=== PATIENT | female | born 1945 | race Caucasian/White ===

== ENCOUNTER 2018-08-02 10:33 | Emergency (ER) | payer BC, MEDICARE ==
[2018-08-02 12:46] LABS: Bilirubin Small (Negative); Blood, Urine Small (Negative); Clarity TURBID (Clear); Glucose, Urine (Dipstick) Negative (Negative); Leukocyte Moderate (Negative); Nitrite Negative (Negative); Protein, Urine (Dipstick) 100 mg/dL (Neg-Trace); Specific Gravity, Urine 1.017 (1.002-1.036); Urobilinogen 0.2 mg/dL (0.2-1.0)
[2018-08-02 12:48] LABS: Pathc Cast-AUWi Flag 2.18 (0-2.49); Squamous Epithelial 0-3 HPF (0-3)
[2018-08-02 12:59] LABS: Yeast-AUWi Flag 2290.6 (0-25.0)
[2018-08-02 13:12] LABS: Bacteria/HPF 4+ HPF (None Seen); Hyaline Casts/LPF 0-3 HYALINE CAST LPF (0-3 Hyaline); Transitional Epithelial 0-3 HPF (0-3); Yeast-All Forms 1+ HPF (None Seen)
[2018-08-02] MEDS ORDERED: Fentanyl 100 MCG/2 ML VIAL ONE (15:01)
[2018-08-02] MEDS ORDERED: Morphine 4 MG/ML VIAL ONE (16:04)
[2018-08-02] MEDS ORDERED: Dextrose 5% in Water 1,000 ML IV PRN (16:48)
[2018-08-02] MEDS ORDERED: Dextrose 50% Abboject 50 ML SYRINGE SLOW IVP PRN (16:48)
[2018-08-02] MEDS ORDERED: Ondansetron PF 4 MG/2 ML Vial IVP PRN (16:48)
[2018-08-02] MEDS ORDERED: Ondansetron ODT 4 MG TAB PO PRN (16:48)
[2018-08-02] MEDS ORDERED: Morphine 2 MG/ML SYRINGE IVP PRN (16:48)
[2018-08-02] MEDS ORDERED: Sodium Bicarbonate 150 MEQ in Dextrose 5% in Water 1,000 ML IV SCH (17:00)
[2018-08-02] MEDS ORDERED: Acetaminophen 1,000 MG in Premix Bag 1 BAG IVPB SCH (18:00)
--- NOTE | 2018-08-02 18:08 | ULT ---
BILATERAL RENAL ULTRASOUND COMPLETE: 08/02/18 HISTORY: 73-year-old female with history of acute renal failure. Right kidney measures 10.1 x 5.3 x 5.4 cm. Left kidney measures 0.5 x 4.8 x 5.1 cm. No renal hydronephrosis. No perinephric process. The bladder is empty with a Torres catheter in place. IMPRESSION: Unremarkable bilateral renal ultrasound. No evidence for hydronephrosis. POS: JENNIFER
--- NOTE | 2018-08-02 21:21 | CON ---
DATE OF CONSULTATION: 08/02/2018 CONSULTING PHYSICIAN: Ly Gorman M.D. REQUESTING PHYSICIAN: ER physician. REASON FOR CONSULTATION: Acute kidney injury. IMPRESSION: 1. Acute kidney injury. This is likely prolonged prerenal state that may have progressed to acute t ubular necrosis, stage, this is more or less in the context of poor p.o. intake with increased gastro intestinal loss compounded by possible continued use of angiotensin converting enzyme inhibitor, jose nopril. 2. Metabolic acidosis likely in the context of gastrointestinal loss of bicarbonate as well as reduc ed GFR due to acute kidney injury. 3. Hyperkalemia in the context of reduced GFR and metabolic acidosis with its result and cellular sh ift of potassium. 4. Profound azotemia related to problem #1. PLAN: 1. Rehydrate this patient with bicarb-based infusion and reevaluate the renal function within the ne xt 24 hours. Hopefully, patient will begin to show significant evidence of renal recovery. Otherwis e, if this is already an established acute tubular necrosis, it might take a little bit longer to exp erience significant renal recovery. In that event, I have already discussed with his son that we may need renal replacement therapy, but at time of dictation, there is no emergent indication for renal replacement therapy (hemodialysis) this modality of treatment will be pending based on the clinical c ourse. 2. Renal ultrasound to evaluate the echogenicity and size and symmetry of the kidneys. 3. Parathyroid hormone, phosphorus and order renal parameters to evaluate for acute versus chronicit y, though I suspect this is more of an acute insult. 4. Renally dose all medications and avoid potentially nephrotoxic agents. 5. In the event that the patient's renal function does not show significant recovery, we will prefer coordinating hip replacement with the placement of dialysis access. HISTORY OF PRESENT ILLNESS: A 73-year-old female patient who initially presented here for what has b een deemed as urinary tract infection and was sent out and on getting out, patient did sustain a fall , fracturing the femur. Further clinical evaluation revealed significant evidence of acute kidney in jury with creatinine of up to and profound azotemia. Of note for the past several days, patien t has not been eating well and drinking well, associated with diarrhea. Patient denies any rash. No fever. No hematuria. As a result of the findings of the significant renal failure, decision was ta john to involve Renal in the management of this case. PAST MEDICAL HISTORY: Significant for hypertension, chronic pain syndrome on morphine. MEDICATIONS: Reviewed and as documented on [employer]. ALLERGIES: CODEINE and TOMATO. FAMILY HISTORY: No family history of kidney disease. SOCIAL HISTORY: No alcohol, no tobacco, no illicit drug use. REVIEW OF SYSTEMS: As documented in the body of the history. All the other systems were reviewed an d found not to be significantly related to presenting illness. Patient is experiencing pain involvin g the hip fracture. PHYSICAL EXAMINATION: GENERAL: The patient was found to be in some physical distress, hemodynamically stable. VITAL SIGNS: Blood pressure 151/92, respiratory rate of 18, O2 sat 96%. HEENT: Remarkable for dry oral mucosa. Neck was supple. No conjunctival injection or icterus. CARDIOVASCULAR SYSTEM: First and second heart sounds were heard. RESPIRATORY SYSTEM: Clear to auscultation. DIGESTIVE SYSTEM: Revealed a benign abdomen with positive bowel sounds. EXTREMITIES: No peripheral edema. NEUROLOGIC: Alert, oriented. No lateralizing sign. LYMPHATICS: No peripheral lymphadenopathy. Bilateral pedal pulses noted. SUMMARY: A 73-year-old female patient who sustained a fall fracturing the left femur and now having evidence of acute kidney injury. Thank you for this consultation. We will follow with you.
== END 2018-08-02 14:05 | disposition home or self-care (01) ==
LOC: ERS 10:33
DX: N39.0 Urinary tract infection, site not specified (principal); I10 Essential (primary) hypertension; Z79.899 Other long term (current) drug therapy
CPT/HCPCS: 76770; 81003; 81015; 82570; 87086; J2270; J3010; J7070

== ENCOUNTER 2018-08-02 14:31 | Inpatient (IN) | payer BC, MEDICARE ==
[2018-08-02 15:08] LABS: #Lymphocytes 0.8 thou/uL (1.20-3.40); #Monocytes 0.3 thou/uL (0.11-0.59); #Neutrophils 6.9 thou/uL (1.40-6.50); %Basophils 0.2 % (0.0-1.0); %Eosinophils 0.4 % (0.0-10.0); %Lymphocytes 9.4 % (21.0-51.0); %Monocytes 3.7 % (0.0-10.0); %Neutrophils 86.3 % (42.0-75.0); Hemoglobin 9.6 g/dL (12.0-16.0); Mean Corpuscular Hemoglobin 31.3 pg (27.0-31.0); Mean Corpuscular Volume 94.9 fL (78.0-98.0); Mean Platelet Volume 6.2 fL (7.4-10.4); Platelet Count 418 thou/uL (130-400); RBC Distribution Width 13.4 % (11.5-14.5); Red Blood Cell (RBC) Count 3.06 mill/uL (4.20-5.40)
[2018-08-02 15:29] LABS: ALT (SGPT) 12 U/L (8-55); AST (SGOT) 21 U/L (5-34); Alkaline Phosphatase 109 U/L (40-150); Anion Gap 31 mmol/L (10-20); BUN (Urea Nitrogen) 124 mg/dL (9.8-20.1); Bilirubin, Total 0.5 mg/dL (0.2-1.2); Calc. Creatinine Clearance 0 mL/min (70-130); Calcium 8.9 mg/dL (7.8-10.44); Carbon Dioxide 14 mmol/L (23-31); Chloride 102 mmol/L (98-107); Estimated GFR-MDRD 2; Globulin 3.7 g/dL (2.4-3.5); Glucose 96 mg/dL (83-110); Potassium 5.9 mmol/L (3.5-5.1); Protein, Total 7.7 g/dL (6.0-8.3); Sodium 141 mmol/L (136-145)
[2018-08-02 15:34] LABS: Troponin I 0.062 ng/mL (< 0.028)
[2018-08-02 15:38] LABS: CKMB 11.6 ng/mL (0-6.6)
--- NOTE | 2018-08-02 15:42 | RAD ---
LEFT HIP TWO VIEW 08/02/18 HISTORY: Pain after a fall. COMPARISON: None. FINDINGS: An intertrochanteric fracture of the left femur with medial displacement of the lesser trochanter anna roximately 7 mm. Mild comminution. IMPRESSION: Intertrochanteric fracture left femur. POS: JOLENE
--- NOTE | 2018-08-02 15:44 | RAD ---
PELVIS ONE VIEW: 08/02/18 HISTORY: Fall. COMPARISON: None. FINDINGS: Intertrochanteric fracture left femur with medial displacement of the lesser trochanter. IMPRESSION: Intertrochanteric fracture left femur. POS: JOLENE
--- NOTE | 2018-08-02 15:44 | RAD ---
CHEST 1 VIEW: Date: 08/02/18 HISTORY: Fall. COMPARISON: None. FINDINGS: There is scarring in the lung bases. No pneumothorax. No focal air space consolidation. Old left and right-sided rib fractures. IMPRESSION: Chronic changes and cardiomegaly. POS: JENNIFER
--- NOTE | 2018-08-02 15:45 | RAD ---
LEFT FEMUR TWO VIEWS: 08/02/18 HISTORY: Fall. COMPARISON: None. FINDINGS: Intertrochanteric fracture left femur. IMPRESSION: Intertrochanteric fracture left femur. POS: JOLENE
--- NOTE | 2018-08-02 16:57 | CT ---
ABDOMEN AND PELVIC CT SCAN WITHOUT IV CONTRAST: 08/02/18 HISTORY: 73-year-old female with left abdominal pain and renal failure. There is a comminuted intertrochanter ic fracture of the left hip with some foreshortening. This was demonstrated on a prior femur exam, . Mild linear parenchymal changes in the lung bases, nonspecific, possibly chronic changes of subsegmen stephan atelectasis. Multiple cysts are noted within the liver. The gallbladder shows some borderline gal lbladder wall thickening and some heterogeneous attenuation within the gallbladder. No evidence for p ericholecystic abnormal fat stranding or fluid. Pancreas and spleen are unremarkable. Small hiatal h ernia. Some minimal nodularity in the left adrenal gland, evidence for left adrenal adenoma. Several small nonobstructing left renal calculi. No evidence for acute obstruction. No abnormal fluid betina ection within the abdomen or pelvis. IMPRESSION: Two nonobstructing left renal calculi. A small hiatal hernia. Small left adrenal adenoma. Somewhat th ick walled appearing gallbladder with heterogeneous attenuation but no overt pericholecystic fat stra nding or fluid. If the patient has right upper quadrant pain and there is concern for cholecystitis, a followup ultrasound study might be considered. No acute obstruction. Comminuted intertrochanteri c fracture left femur. POS: [facility]
[2018-08-02] MEDS ORDERED: Ondansetron ODT 4 MG TAB PO PRN (19:00)
[2018-08-02] MEDS ORDERED: Dextrose 5% in Water 1,000 ML IV PRN (19:00)
[2018-08-02] MEDS ORDERED: Dextrose 50% Abboject 50 ML SYRINGE SLOW IVP PRN (19:00)
[2018-08-02] MEDS: Ondansetron PF 4 MG/2 ML Vial IVP PRN (19:08)
[2018-08-02] MEDS: Morphine 2 MG/ML SYRINGE IVP PRN ×2 (19:08→21:28)
--- NOTE | 2018-08-02 19:22 | HP ---
DATE OF ADMISSION: 08/02/2018 ATTENDING PHYSICIAN: Dr. Robb. TRAUMA ACTIVATION: Not applicable. HISTORY OF PRESENT ILLNESS: Roxanne Evans is a 73-year-old female who presented to [facility] earlier today with a chief complaint of nausea and vomiting. Per patient, she has experie nced 1-2 weeks of malaise and nausea which has resulted in poor p.o. intake. She started vomiting ea rlier today and therefore presented to the emergency room. She was seen and evaluated and diagnosed with a urinary tract infection. At that time, the patient was discharged from the emergency room. A s she was getting into her car to leave she fell, striking her left hip. The patient was reevaluated in the emergency room and found to have a left hip fracture. Additionally, the patient had markedly abnormal labs to include acute renal failure, hyperkalemia, and abnormal cardiac enzymes. Upon my e valuation, the patient has a chief complaint of left hip pain. ALLERGIES: None. HOME MEDICATIONS: Include atorvastatin 40 mg, morphine 15 mg t.i.d., hydrochlorothiazide 25 mg daily , clonazepam 0.5 mg b.i.d., tizanidine 4 mg q.8 hours p.r.n., and lisinopril 10 mg. MEDICAL HISTORY: Significant for hypertension, chronic back pain, knee pain and kidney stones. PAST SURGICAL HISTORY: Back surgery and multiple knee injections. SOCIAL HISTORY: The patient currently works [employer]. Denies alcohol, tobacco or illicit drug use. FAMILY HISTORY: Significant for father of coronary artery disease and a sister was from breast cancer. REVIEW OF SYSTEMS: A 10-point review of systems was performed and obtained was significantly positiv e for chills, bilateral flank pain and urinary urgency. Denied frequency, dysuria, hematuria as well as any changes to bowel habits, chest pain, shortness of breath, dizziness or weakness upon standing . The remainder of the 10-point review of systems was negative. PHYSICAL EXAMINATION: VITAL SIGNS: Temperature 98.3, pulse 101, respirations 17, O2 sat 98% on room air, blood pressure 15 4/52. GENERAL: Elderly female in no acute distress, resting in bed. HEAD: Normocephalic, atraumatic. EYES: Pupils are PERRL. Extraocular movements are intact. NECK: Supple. Trachea is midline. CHEST: Atraumatic, nontender to palpation. Normal work of breathing. Symmetric rise. CARDIOVASCULAR: Regular rate and rhythm, no obvious murmurs, rubs or gallops. GASTROINTESTINAL: Soft, nontender, nondistended. She does exhibit some mild tenderness to the flank s. MUSCULOSKELETAL: Left lower extremity is shortened and externally rotated. She is neurovascularly i ntact distal to the side of her injury. Range of motion limited secondary to pain. Other extremitie s within normal limits. NEUROLOGIC: GCS is 15 and no focal deficit is noted. LABORATORY DATA: WBC 8.0, hemoglobin 9.6, hematocrit 29, platelet count 418. Sodium 141, potassium 5.9, chloride 102, carbon dioxide 14, BUN 124, creatinine 16.68, glucose 96, AST and ALT within jignesh l limits. Troponin 0.062. CK-MB 11.6. EKG with nonspecific T-wave changes. No evidence of T-waves noted. RADIOGRAPHIC FINDINGS: X-ray of the left hip demonstrated a left intertrochanteric hip fracture. X- ray of the pelvis demonstrated the same. X-ray of the chest showed cardiomegaly with bibasilar scarr ing and atelectasis, evidence of old bilateral rib fractures. X-ray of the left femur demonstrated a left intertrochanteric femur fracture. CT of the abdomen and pelvis demonstrated nonobstructing lef t renal calculi, a small hiatal hernia. Left adrenal adenoma of thickened gallbladder and multiple l iver cysts within the liver. A renal ultrasound and echocardiogram are pending. ASSESSMENT: 1. Status post mechanical fall. 2. Left intertrochanteric hip fracture. 3. Acute traumatic pain. 4. Acute renal failure, possibly secondary to acute tubular necrosis. 5. Urinary tract infection. 6. Hyperkalemia, secondary to above. 7. Anion gap metabolic acidosis secondary to above. 8. History of hypertension. 9. History of chronic pain on chronic narcotics. 10. Cardiomegaly. 11. Nonobstructing kidney stones. PLAN: Admit to [facility]. Nephrology has been consulted by the emergency room physician, follow up recom mendations. IV fluid bolus now. Closely monitor urine output. Kayexalate for hyperkalemia. Initia te bicarbonate drip. Pain management with IV analgesics. Follow up pending ultrasound studies. Rep eat labs. The patient may need central line for closer hemodynamic monitoring. Empiric antibiotics and urine culture. Plan for admission was discussed with the patient and family at bedside and all q uestions were answered at the time of this dictation. Patient has been seen and evaluated by Dr. Miguelina barajas who agrees with my assessment and plan.
[2018-08-02 19:49] LABS: CKMB 10.1 ng/mL (0-6.6)
[2018-08-02 19:56] LABS: Iron 50 ug/dL (50-170); Iron Binding Capacity, Total 198 mcg/dL (265-497)
[2018-08-02] MEDS: Acetaminophen 1,000 MG in Premix Bag 1 BAG IVPB SCH (20:06)
[2018-08-02 20:45] LABS: Potassium 5.6 mmol/L (3.5-5.1)
[2018-08-02] MEDS ORDERED: Acetaminophen 1,000 MG in Premix Bag 1 BAG IVPB SCH (23:59)
[2018-08-03] MEDS: Sodium Bicarbonate 150 MEQ in Dextrose 5% in Water 1,000 ML IV SCH ×2 (00:20→05:39)
[2018-08-03] MEDS: Acetaminophen 1,000 MG in Premix Bag 1 BAG IVPB SCH ×4 (01:47→23:11)
[2018-08-03 04:29] LABS: Anion Gap 23 mmol/L (10-20); BUN (Urea Nitrogen) 119 mg/dL (9.8-20.1); Calc. Creatinine Clearance 4 mL/min (70-130); Calcium 7.4 mg/dL (7.8-10.44); Carbon Dioxide 24 mmol/L (23-31); Chloride 96 mmol/L (98-107); Estimated GFR-MDRD 2; Glucose 210 mg/dL (83-110); Potassium 4.5 mmol/L (3.5-5.1); Sodium 138 mmol/L (136-145)
[2018-08-03] MEDS: Ondansetron PF 4 MG/2 ML Vial IVP PRN (06:12)
[2018-08-03] MEDS: Morphine 2 MG/ML SYRINGE IVP PRN ×3 (06:22→18:35)
[2018-08-03] MEDS ORDERED: Prevnar 13-Val Conj/PF 0.5 ML SYRINGE IM ONE (09:00)
[2018-08-03] MEDS ORDERED: Neomycin-Polymyxin 1 ML AMP ONE (09:23)
[2018-08-03] MEDS ORDERED: Fentanyl 100 MCG/2 ML VIAL ONE ×5 (09:30→16:32)
[2018-08-03 09:32] LABS: #Lymphocytes 0.7 thou/uL (1.20-3.40); #Monocytes 0.5 thou/uL (0.11-0.59); #Neutrophils 5.4 thou/uL (1.40-6.50); %Basophils 0.1 % (0.0-1.0); %Eosinophils 0.4 % (0.0-10.0); %Lymphocytes 10.3 % (21.0-51.0); %Monocytes 7.1 % (0.0-10.0); %Neutrophils 82.1 % (42.0-75.0); Hemoglobin 7.4 g/dL (12.0-16.0); Mean Corpuscular HGB CONC 32.8 g/dL (32.0-36.0); Mean Corpuscular Hemoglobin 30.4 pg (27.0-31.0); Mean Corpuscular Volume 92.7 fL (78.0-98.0); Mean Platelet Volume 6.4 fL (7.4-10.4); Platelet Count 322 thou/uL (130-400); Red Blood Cell (RBC) Count 2.42 mill/uL (4.20-5.40); White Blood Cell (WBC) Count 6.5 thou/uL (4.8-10.8)
[2018-08-03] MEDS ORDERED: Glycopyrrolate 0.2 MG/ML 5 ML SYRINGE ONE (10:03)
[2018-08-03] MEDS ORDERED: Dexamethasone 20 MG/5 ML VIAL ONE (10:03)
[2018-08-03] MEDS ORDERED: Lidocaine 1% PF 5 ML VIAL ONE (10:03)
[2018-08-03] MEDS ORDERED: PROPOFOL 200 MG/20 ML VIAL ONE (10:03)
[2018-08-03] MEDS ORDERED: ePHEDrine/0.9% NaCl/PF SYRINGE 50 mg/10 ml ONE (10:03)
[2018-08-03] MEDS ORDERED: Ondansetron PF 4 MG/2 ML Vial ONE (10:03)
[2018-08-03] MEDS ORDERED: Fentanyl 100 MCG/2 ML VIAL SLOW IVP SCH (10:15)
[2018-08-03] MEDS ORDERED: Sodium Bicarbonate 150 MEQ in Dextrose 5% in Water 1,000 ML IV SCH (10:15)
--- NOTE | 2018-08-03 10:53 | RAD ---
CHEST 1 VIEW: Date: 08/03/18 HISTORY: Central line placement. COMPARISON: Radiograph dated 08/02/18. FINDINGS: Central venous catheter is in place with tip in mid SVC. Mild chronic interstitial scarring throughou t the lungs. Heart size is enlarged. No pneumothorax or effusion. IMPRESSION: Uncomplicated placement of central venous catheter. POS: JENNIFER
[2018-08-03] MEDS ORDERED: HYDROmorphone 2 MG/ML VIAL ONE ×2 (14:37→15:16)
[2018-08-03] MEDS ORDERED: SUGAMMADEX SODIUM 500 MG/5 ML VIAL ONE (14:48)
[2018-08-03] MEDS ORDERED: Cepastat Lozenges 1 LOZ PO PRN (14:54)
[2018-08-03] MEDS ORDERED: Ondansetron ODT 4 MG TAB PO PRN (14:54)
[2018-08-03] MEDS ORDERED: Fleet Enema 133 ML BOT PR PRN (14:54)
[2018-08-03] MEDS ORDERED: Bisacodyl 10 MG SUPP PR PRN (14:54)
[2018-08-03] MEDS ORDERED: Milk Of Magnesia 30 ML UDCUP PO PRN (14:54)
[2018-08-03] MEDS ORDERED: HYDROmorphone 2 MG/ML VIAL SLOW IVP PRN (15:03)
[2018-08-03] MEDS ORDERED: Ondansetron HCl/PF 4 MG/2 ML Vial IVP PRN (15:03)
[2018-08-03] MEDS ORDERED: PACU-Morphine 4MG/ML VIAL SLOW IVP PRN (15:03)
[2018-08-03] MEDS ORDERED: Promethazine HCl 25 MG/ML VIAL IM PRN (15:03)
[2018-08-03] MEDS ORDERED: Promethazine HCl 25 MG/ML VIAL SLOW IVP PRN (15:03)
[2018-08-03] MEDS ORDERED: Morphine 4 MG/ML VIAL ONE (15:09)
--- NOTE | 2018-08-03 15:17 | RAD ---
LEFT FEMUR 2 VIEWS: Date: 08/03/18 HISTORY: Open reduction and internal fixation. COMPARISON: Radiograph prior day. FINDINGS: Satisfactory open reduction and internal fixation intramedullary nail left femur. IMPRESSION: Satisfactory postoperative appearance. Fluoro time: 36.5 seconds. POS: JOLENE
[2018-08-03 15:39] LABS: #Lymphocytes 0.7 thou/uL (1.20-3.40); #Monocytes 0.3 thou/uL (0.11-0.59); #Neutrophils 9.9 thou/uL (1.40-6.50); %Basophils 0.1 % (0.0-1.0); %Eosinophils 0.4 % (0.0-10.0); %Lymphocytes 6.2 % (21.0-51.0); %Monocytes 3.1 % (0.0-10.0); %Neutrophils 90.1 % (42.0-75.0); Hemoglobin 8.4 g/dL (12.0-16.0); Mean Corpuscular HGB CONC 35.6 g/dL (32.0-36.0); Mean Corpuscular Hemoglobin 33.2 pg (27.0-31.0); Mean Corpuscular Volume 93.3 fL (78.0-98.0); Mean Platelet Volume 6.1 fL (7.4-10.4); Platelet Count 337 thou/uL (130-400); RBC Distribution Width 13.1 % (11.5-14.5); Red Blood Cell (RBC) Count 2.53 mill/uL (4.20-5.40)
--- NOTE | 2018-08-03 15:42 | OP ---
DATE OF OPERATION: 08/03/2018 PREOPERATIVE DIAGNOSIS: Intertrochanteric fracture of the left hip. POSTOPERATIVE DIAGNOSIS: Intertrochanteric fracture of the left hip. PROCEDURE: Open reduction and internal fixation of intertrochanteric fracture of the left hip utiliz ing a trochanteric fixation nail. SURGEON: Kali Pedraza M.D. ANESTHESIA: General. TECHNIQUE: The patient was given preoperative IV antibiotics, taken to the operating room and placed in supine position. Satisfactory general anesthesia was performed. Patient was then placed on the fracture table. All bony prominences were well padded. Traction was applied to the left foot and an kle and C-arm verified good alignment of the intertrochanteric fracture in AP, lateral, multiple obli que views. Lateral aspect of the left hip and thigh were then sterilely prepped and draped. Longitu dinal incision was made proximal to the greater trochanter approximately 3 inches in length and under fluoroscopic visualization, a guidepin was placed through the greater trochanter was over reamed and an 11 mm [employer]ynthe[employer] trochanteric fixation nail was inserted, it was 170 mm in length. It was inserted into the appropriate depth, so that through, a 1.5-inch incision on the lateral aspect of the thigh. A guide was used to drill up through the lateral aspect of the femur and into the femoral neck and h ead. The appropriate length screw was measured. The lateral cortex was over reamed and a 100 mm hel ical blade was inserted into the femoral neck and head and through the proximal aspect of the nail an d the locking device was used to lock the helical blade into place. A 5.0 locking screw was inserted into the femur and distal aspect of the vickie. Again, this was all verified with the C-arm with fluor oscopy. The two wounds were then copiously irrigated with antibiotic solution. They were closed usi ng #1 Vicryl for the iliotibial band, 0 Vicryl for the fat and subcutaneous tissue, and skin was clos ed with skin jesenia. Sterile dressing was applied. The patient was taken out of traction, was take n off the fracture table. She was awakened, extubated, and transferred to recovery room in stable co ndition. ESTIMATED BLOOD LOSS: 100 mL COMPLICATIONS: None.
[2018-08-03 15:59] LABS: Anion Gap 25 mmol/L (10-20); BUN (Urea Nitrogen) 110 mg/dL (9.8-20.1); Calc. Creatinine Clearance 4 mL/min (70-130); Calcium 6.9 mg/dL (7.8-10.44); Carbon Dioxide 28 mmol/L (23-31); Chloride 92 mmol/L (98-107); Estimated GFR-MDRD 3; Glucose 115 mg/dL (83-110); Magnesium 1.4 mg/dL (1.6-2.6); Potassium 3.5 mmol/L (3.5-5.1); Sodium 141 mmol/L (136-145)
[2018-08-03 16:03] LABS: Phosphorus 9.6 mg/dL (2.3-4.7)
--- NOTE | 2018-08-03 17:04 | CON ---
DATE OF CONSULTATION: 08/03/2018 HISTORY OF PRESENT ILLNESS: Ms. Evans is a 73-year-old white female who presented yesterday morning to the emergency room with nausea and vomiting. The patient was discharged from the emergency room a nd she went out to the parking lot to get into her vehicle. She fell and injured her left hip. She was brought back to the emergency room and x-rays revealed an intertrochanteric fracture of the left hip. The patient was admitted and laboratory showed elevated creatinine, BUN and potassium. She has been receiving hydration and her laboratory has improved. She is no longer hyperkalemic. Her creat inine has decreased and she has been cleared to undergo surgery for a broken left hip. PAST MEDICAL HISTORY: Medical illnesses: Hypertension, chronic back pain, knee pain, kidney stones. CURRENT MEDICATIONS: Morphine 15 mg 3 times a day, hydrochlorothiazide, clonazepam, lisinopril, tiza nidine, atorvastatin. ALLERGIES: None. PAST SURGICAL HISTORY: Previous back surgery. PHYSICAL EXAMINATION: EXTREMITIES: The patient is able to move her upper extremities without pain. Any attempts of moveme nt of the left hip causes severe pain. She even has left hip pain with movement of the right hip and lower extremity. The patient is able to flex and extend her toes and her left ankle and she has goo d peripheral pulses. IMAGING: X-rays show an intertrochanteric fracture of the left hip. IMPRESSION: 1. Intertrochanteric fracture of the left hip. 2. Acute renal failure. 3. Hyperkalemia, which has been normalized. 4. Hypertension. 5. Chronic back pain. PLAN: The patient has been cleared for surgery on the left hip. We will plan on performing open red uction internal fixation of the left hip. Plan on using a trochanteric fixation nail. Potential ris ks with the condition of surgery include, but are not limited to infection, bleeding, pain, damage to blood vessels or nerves, nonunion, malunion, the patient may require additional surgery, DVT and PE formation. The patient's questions were answered and she agreed to the procedure.
[2018-08-03] MEDS ORDERED: [UNRECOGNIZED DRUG - REMARK] IVPB PRN (17:11)
[2018-08-03] MEDS: Dextrose 5 % And 0.9 % NaCl 1,000 ML IV SCH (18:54)
--- NOTE | 2018-08-03 19:19 | PRG ---
DATE OF SERVICE: 08/03/2018 SUBJECTIVE: Patient is seen and examined. The only complaint is pain related to the area of surger y. Otherwise, the patient seems to be doing much better, noted with the following vital signs. PHYSICAL EXAMINATION: VITAL SIGNS: Afebrile with temperature 98.6, pulse 77, respiratory rate of 18, O2 saturation of 96% with a blood pressure 130/67. HEENT: Unremarkable. CARDIOVASCULAR: First and second heart sounds were heard. RESPIRATORY: Clear to auscultation. DIGESTIVE: Revealed a benign abdomen with positive bowel sounds. EXTREMITIES: No peripheral edema. SKIN: No new gross rash. LYMPHATICS: No peripheral lymphadenopathy. LABORATORY DATA: Sodium of 138, potassium 4.5, bicarbonate of 24, BUN of 119 with a creatinine of 14 .7, phosphorus 11, calcium 7.4. IMPRESSION: 1. Prolonged prerenal state as progressed to acute tubular necrosis showing marginal improvement. 2. Severe hyperphosphatemia related to problem #1. 3. Secondary hyperparathyroidism. 4. Left femoral fractures status post fall. PLAN: 1. Decrease in creatinine is partly due to hemodilution from IV fluid plus some degree of renal live very. We will continue to monitor this kidney function for the next 24-48 hours. If no significant renal improvement in order to expedite the healing process of this patient, we will move towards hemo dialysis and continue to monitor the renal function. 2. Change the patient's bicarbonate-based infusion as patient's metabolic acidosis for the most part , improved. 3. Renally dose all medications per low GFR. 4. Further management to be dependent on the clinical course.
--- NOTE | 2018-08-03 19:24 | PRG ---
DATE OF SERVICE: 08/03/2018 SUBJECTIVE: This is a 73-year-old female who is post-injury day 2 status post fall resulting in a le ft hip fracture. The patient was additionally found to be in acute renal failure with hyperkalemia. There were no acute overnight events. Upon our evaluation this morning, the patient has a chief com plaint of left hip pain. OBJECTIVE: VITAL SIGNS: Temperature 98.6, pulse 77, respirations 18, O2 sat 96% on 2 liters nasal cannula, bloo d pressure 130/67. GENERAL: Elderly appearing female, in no acute distress, resting in bed. HEENT: Normocephalic, atraumatic. PULMONARY: Normal work of breathing, symmetric rise. LUNGS: Clear to auscultation bilaterally. CARDIOVASCULAR: Regular rate and rhythm. GASTROINTESTINAL: Abdomen is soft, nontender, nondistended. MUSCULOSKELETAL: Left lower extremity is shortened and externally rotated. She is neurovascularly i ntact distal to the side of her injury. NEUROLOGIC: No focal deficit is noted. Urine output 520 mL overnight. LABORATORY FINDINGS: WBC 6.5, hemoglobin 7.4, hematocrit 22.4, platelet count 322,000. Sodium 138, potassium 4.5, chloride 96, carbon dioxide 24, BUN 119, creatinine 14.7, glucose 210, calcium 7.4, ph osphorus 11.0. RADIOGRAPHIC FINDINGS: Echocardiogram, LVEF 55%-60%, mild diastolic dysfunction, moderate to s evere TR and mildly elevated pulmonary artery pressure. ASSESSMENT: 1. Status post mechanical fall. 2. Left intertrochanteric hip fracture. 3. Acute traumatic pain. 4. Acute renal failure. 5. Urinary tract infection, microbiology pending. 6. Hyperkalemia, improved. 7. Metabolic acidosis, improved. 8. History of hypertension. 9. History of chronic pain on chronic narcotics. 10. Diastolic dysfunction. PLAN: A central venous line has been placed by Dr. Robb at bedside. CVP is measuring between 12 an d 15. The patient is likely euvolemic at this time. We will reduce rate of bicarbonate drip from 25 0 to 100. Continue to follow urine output. The patient has been cleared by Dr. Robb for operative intervention to her left lower extremity. We will follow up postoperatively with postop labs. We wi ll discuss the case with Nephrology. The patient is likely going to need dialysis. Continue antibio tics as ordered. Follow urine culture. Plan of care was discussed with the patient and family at [facility] and all questions were answered at the time of this dictation. The patient was seen and evalua yon with Dr. Robb.
[2018-08-03] MEDS: Morphine IR Tab 15 MG TAB PO SCH (20:35)
[2018-08-03] MEDS: Senokot S 8.6-50 MG TAB PO SCH (20:35)
[2018-08-03] MEDS: clonazePAM 0.5 MG TAB PO SCH (20:36)
[2018-08-03] MEDS: Atorvastatin Calcium 40 MG TAB PO SCH (20:36)
[2018-08-03] MEDS ORDERED: Zolpidem Tartrate 5 MG TAB PO SCH (21:00)
[2018-08-03] MEDS ORDERED: Ferrous Gluconate 324 MG TAB PO SCH (21:00)
[2018-08-03] MEDS ORDERED: Morphine IR Tab 15 MG TAB PO SCH (22:00)
[2018-08-04] MEDS: Dextrose 5 % And 0.9 % NaCl 1,000 ML IV SCH ×2 (04:54→19:58)
[2018-08-04 05:11] LABS: #Lymphocytes 0.5 thou/uL (1.20-3.40); #Monocytes 0.3 thou/uL (0.11-0.59); #Neutrophils 5.1 thou/uL (1.40-6.50); %Eosinophils 0.1 % (0.0-10.0); %Monocytes 5.4 % (0.0-10.0); %Neutrophils 86.5 % (42.0-75.0); Hemoglobin 7.1 g/dL (12.0-16.0); Mean Corpuscular HGB CONC 32.8 g/dL (32.0-36.0); Mean Corpuscular Hemoglobin 30.8 pg (27.0-31.0); Mean Corpuscular Volume 94.1 fL (78.0-98.0); Mean Platelet Volume 6.4 fL (7.4-10.4); Platelet Count 295 thou/uL (130-400); RBC Distribution Width 13.1 % (11.5-14.5); Red Blood Cell (RBC) Count 2.29 mill/uL (4.20-5.40); White Blood Cell (WBC) Count 5.8 thou/uL (4.8-10.8)
[2018-08-04 05:24] LABS: Albumin 2.8 g/dL (3.4-4.8); Anion Gap 22 mmol/L (10-20); BUN (Urea Nitrogen) 110 mg/dL (9.8-20.1); BUN/Creatinine Ratio 7.83; Calc. Creatinine Clearance 4 mL/min (70-130); Calcium 6.3 mg/dL (7.8-10.44); Carbon Dioxide 29 mmol/L (23-31); Chloride 93 mmol/L (98-107); Estimated GFR-MDRD 3; Glucose 172 mg/dL (83-110); Magnesium 1.8 mg/dL (1.6-2.6); Potassium 4.3 mmol/L (3.5-5.1); Sodium 140 mmol/L (136-145)
[2018-08-04 05:29] LABS: Phosphorus 11.1 mg/dL (2.3-4.7)
[2018-08-04] MEDS: Ondansetron PF 4 MG/2 ML Vial IVP PRN ×2 (07:18→19:58)
[2018-08-04] MEDS ORDERED: Enoxaparin Sodium 30 MG/0.3 ML SYRINGE SC SCH (09:00)
[2018-08-04] MEDS: Escitalopram Oxalate 10 mg Tablet PO SCH (09:16)
[2018-08-04] MEDS: clonazePAM 0.5 MG TAB PO SCH ×2 (09:16→21:55)
[2018-08-04] MEDS: Morphine IR Tab 15 MG TAB PO SCH ×4 (09:16→21:55)
[2018-08-04] MEDS: Senokot S 8.6-50 MG TAB PO SCH ×2 (09:17→21:55)
[2018-08-04] MEDS: Multivitamin W/ Minerals 1 TAB PO SCH (09:17)
[2018-08-04] MEDS: Epoetin (ESRD) 20,000 UNITS/ML SC SCH (09:19)
[2018-08-04] MEDS: Morphine 2 MG/ML SYRINGE IVP PRN ×2 (09:42→20:57)
[2018-08-04 10:24] LABS: Complement-C4 35.5 mg/dL (15-57)
[2018-08-04] MEDS ORDERED: Heparin 10,000 UNITS/ 10 ML VIAL ONE (11:00)
--- NOTE | 2018-08-04 13:13 | CON ---
DATE OF CONSULTATION: 08/04/2018 HISTORY OF PRESENT ILLNESS: Ms. Evans has acute renal failure. I have been asked by Dr. Modi to see her regarding placement of a hemodialysis catheter. She had normal renal function in the mon ths prior. ALLERGIES: CODEINE, TOMATOES. TOBACCO AND ALCOHOL: None. MEDICATIONS: Outpatient clonazepam 1 mg p.o. b.i.d., morphine 50 mg p.o. q.8 h, Zanaflex one tab p.o . p.r.n., Lexapro 10 mg p.o. daily, Lipitor daily, zolpidem 10 mg p.o. at bedtime. PAST SURGICAL HISTORY: Dr. Pedraza 08/03/2018, ORIF left hip. Back surgery, multiple knee injectio ns. PAST MEDICAL HISTORY: Hypertension, chronic back pain, knee pain, kidney stones. REVIEW OF SYSTEMS: Ten point noncontributory. PHYSICAL EXAMINATION: VITAL SIGNS: Height 5 feet 4 inches, 168 pounds, 28 BMI, 98 degrees, 90, 16, 131/75. HEENT: Unremarkable. LUNGS: Clear to auscultation. CARDIAC: Regular rate and rhythm without murmur or gallop. ABDOMEN: Soft, nontender. EXTREMITIES: Unremarkable. ASSESSMENT AND PLAN: Acute renal failure. We will plan placement of a hemodialysis catheter cuffed tunneled to initiate dialysis today. We will protect her veins in case she needs future dialysis acc ess, but hopefully her kidneys will recover such that she will not need halfway dialysis access. U ltrasound vein mapping has been obtained for future reference if necessary. A discussion was held wi th the patient and her son who was in the room. Questions answered.
[2018-08-04] MEDS ORDERED: Fentanyl 100 MCG/2 ML VIAL ONE ×2 (14:03→16:11)
--- NOTE | 2018-08-04 14:05 | PRG ---
DATE OF SERVICE: 08/04/2018 The patient was seen and examined, vomiting, not feeling well, noted with the following vital signs. PHYSICAL EXAMINATION: VITAL SIGNS: Afebrile with temperature 98, pulse 90, respiratory rate 16, O2 sat 95% on 3 liters, bl ood pressure 121/71. HEENT: Unremarkable with moist oral mucosa. Neck is supple. No conjunctival injection or icterus. CARDIOVASCULAR: First and second heart sounds were heard. RESPIRATORY: Clear to auscultation. DIGESTIVE: Revealed a benign abdomen. EXTREMITIES: No peripheral edema. SKIN: No new gross rash. LYMPHATICS: No peripheral lymphadenopathy. LABORATORY INVESTIGATIONS: Showed a hemoglobin of 7.1. Chemistry showed a phosphorus of 11.1 with a calcium of 6.3, creatinine 14.04 with BUN 110. IMPRESSION: 1. Acute tubular necrosis with profound azotemia. 2. Query incipient uremia. 3. Anemia. 4. Severe hyperphosphatemia with secondary hyperparathyroidism. PLAN: 1. Given the presence of symptoms, raising the possibility of uremia, we will initiate hemodialysis on this patient today and will secure consult with the access surgeon to place a tunneled dialysis ca theter. 2. Vein mapping of upper extremities. 3. Further management to be dependent on the clinical course.
[2018-08-04] MEDS ORDERED: Bupivacaine HCl 0.5%/Epinephrine 1:200,000/PF 30 ml Vial ONE (14:09)
[2018-08-04] MEDS ORDERED: Lidocaine 2% PF 5 ML VIAL ONE (14:09)
[2018-08-04] MEDS ORDERED: Heparin 10,000 UNITS/1 ML VIAL ONE (14:09)
[2018-08-04] MEDS ORDERED: Sodium Chloride 0.9% 20 ML ONE (14:09)
[2018-08-04] MEDS: Heparin 5,000 UNITS/ML VIAL SC SCH ×2 (14:20→21:05)
--- NOTE | 2018-08-04 14:32 | PRG ---
DATE OF SERVICE: 08/04/2018 SUBJECTIVE: Ms. Evans complains of pain in the left hip. She also has been having nausea and vomiti ng. The patient is scheduled to have a line put in so that she can have dialysis because her laborat ory has not significantly improved. Dr. Modi has scheduled her to have the line and will proce ed with the dialysis later today. PHYSICAL EXAMINATION: VITAL SIGNS: The patient is afebrile, pulse is 90, respiratory rate 16, O2 saturation 95% on 3 liter s nasal cannula, blood pressure is 121/71. LABORATORY DATA: CBC shows white count of 5.8, hemoglobin 7.1. Her creatinine is 14. Her BUN is 11 0, potassium is normal at 4.3, phosphorus is elevated at 11.1. PLAN: We will go through the process of receiving the IV access and go through dialysis after which as far as her left hip is concerned, she can get up with physical therapy. She may weightbear as atif erated on the left lower extremity and there are no hip precautions. We will probably start therapy tomorrow.
[2018-08-04] MEDS ORDERED: CEFAZOLIN 2 GM/50 ML BAG ONE (14:56)
[2018-08-04] MEDS ORDERED: Midazolam HCl 2 mg/2 ml Vial ONE (14:57)
[2018-08-04 15:04] LABS: Creatinine, Urine 72.31 mg/dL (47-110)
--- NOTE | 2018-08-04 15:08 | ULT ---
ULTRASOUND VESSEL MAPPING DIALYSIS: HISTORY: Hemodialysis catheter placement. COMPARISON: None. TECHNIQUE: Real-time, laguna scale, color, and spectral analysis of the upper extremities is performed. FINDINGS: RIGHT SIDE: Brachial artery 4.6 mm Radial artery 2.6 mm Ulnar artery 2.6 mm CEPHALIC: Proximal humerus 2.7 mm Mid humerus 4.3 mm Distal 3.0 mm Elbow 3.4 mm Proximal forearm 3.0 mm Mid 2.2 mm Distal 2.6 mm BASILIC: Proximal humerus 9.3 mm Mid humerus 5.9 mm Distal 7.8 mm Elbow 3.9 mm Proximal forearm 1.7 mm Mid 1.9 mm Distal 2.0 mm LEFT SIDE: Brachial artery 3.8 mm Radial artery 2.1 mm Ulnar artery 2.3 mm CEPHALIC: Proximal humerus 4.4 mm Mid humerus 2.2 mm Distal 3.0 mm Elbow 2.9 mm Proximal forearm 3.6 mm Mid 3.5 mm Distal 2.8 mm BASILIC: Proximal humerus 3.8 mm Mid humerus 2.5 mm Distal 3.7 mm Elbow 3.9 mm Proximal forearm 1.7 mm Mid 1.2 mm Distal 1.3 mm Left internal jugular vein is patent. Right internal jugular vein is patent. The right subclavian v ein is patent. Bandage is present over the left subclavian vein limiting evaluation. IMPRESSION: Vascular size as above. POS: [facility]
[2018-08-04] MEDS ORDERED: Lidocaine 1% PF 5 ML VIAL ONE (15:14)
[2018-08-04] MEDS ORDERED: PROPOFOL 200 MG/20 ML VIAL ONE (15:14)
[2018-08-04] MEDS ORDERED: Ondansetron PF 4 MG/2 ML Vial ONE (15:14)
[2018-08-04 15:39] LABS: HBSAB Concentration 1.51 mIU/mL; HBSAg Index 0.23 S/CO (0-0.99); Hep B Core Total Ab Non-Reactive (NonReactive); Hep B Core Total Index 0.07 S/CO (0-0.79); Hep B Surf AB Non-Reactive (NonReactive); Hep B Surf Ag Non-Reactive S/CO (NonReactive); Hep C IgG Ab Non-Reactive (NonReactive); Hep C Index 0.09 S/CO (0-0.79)
[2018-08-04] MEDS ORDERED: Promethazine HCl 25 MG/ML VIAL IM PRN (15:41)
[2018-08-04] MEDS ORDERED: Meperidine HCl/PF 25 MG/ML VIAL SLOW IVP PRN (15:41)
[2018-08-04] MEDS ORDERED: Morphine Sulfate 2 MG/ML SYRINGE SLOW IVP PRN (15:41)
[2018-08-04] MEDS ORDERED: Promethazine HCl 25 MG/ML VIAL SLOW IVP PRN (15:41)
[2018-08-04] MEDS ORDERED: Promethazine HCl 25 MG/ML VIAL ONE (16:11)
--- NOTE | 2018-08-04 18:02 | RAD ---
SINGLE VIEW CHEST: HISTORY: Central line placement in the PACU. COMPARISON: 08/03/2018 FINDINGS: A single view of the chest shows a cardiomediastinal silhouette, which is at the upper limits of norm al in size. A new right IJ dialysis catheter is seen with its tip in the superior vena cava. No pne umothorax is seen. The left-sided central venous catheter is unchanged in position. IMPRESSION: Status post dialysis catheter placement without evidence of complication. POS: [facility]
[2018-08-04] MEDS: Atorvastatin Calcium 40 MG TAB PO SCH (21:55)
--- NOTE | 2018-08-05 00:27 | OP ---
PREOPERATIVE DIAGNOSIS: Acute renal failure after open reduction internal fixation of hip, previousl y normal renal function. POSTOPERATIVE DIAGNOSIS: Acute renal failure after open reduction internal fixation of hip, previous ly normal renal function. PROCEDURE: Right IJ cuffed tunnel dialysis catheter. SURGEON: Krishna Leroy MD ANESTHESIA: TIVA, local 0.5% Marcaine with epinephrine 30 mL mixed with 2% Xylocaine 10 mL. Ultrasound and fluoroscopy used. PROCEDURE IN DETAIL: The patient was taken to the operating room where under intravenous sedation, n alilson and chest were prepared with ChloraPrep, draped in routine fashion. Local anesthetic was infiltr ated into the skin and subcutaneous tissue about the operative site. Under ultrasound guidance, the right IJ was cannulated with a trocar catheter, threaded in J-wire removing the trocar, enlarging the skin incising sharply. Stab incision was made over the right chest. Using the tunneling device, a precurved Angiodynamics cuffed tunnel hemodialysis catheter was tunneled between the two incisions, p lacing the fabric cuff beneath the skin and securing the catheter with 2 sutures of 3-0 nylon. Biopa tc sterile dressing was applied. Smaller and medium-sized dilators were placed over the J-wire into the internal jugular vein and removed. Dilator and pull-away sheath placed over the J-wire in the s uperior vena cava and dilator and J-wire were removed. Catheter was placed through the pull-away she ath. Pull-away sheath was removed. Fluoroscopic images revealed good line placement. Each port was aspirated of blood and flushed with saline solution and then heparinized saline, 1000 units of hepar in per mL indicated volume of the port.
[2018-08-05] MEDS: Dextrose 5 % And 0.9 % NaCl 1,000 ML IV SCH (05:32)
[2018-08-05] MEDS: Heparin 5,000 UNITS/ML VIAL SC SCH ×3 (05:33→20:57)
[2018-08-05 05:36] LABS: Hemoglobin 6.9 g/dL (12.0-16.0); Mean Corpuscular HGB CONC 32.6 g/dL (32.0-36.0); Mean Corpuscular Hemoglobin 31.2 pg (27.0-31.0); Mean Corpuscular Volume 95.8 fL (78.0-98.0); Mean Platelet Volume 5.9 fL (7.4-10.4); Platelet Count 246 thou/uL (130-400); RBC Distribution Width 13.2 % (11.5-14.5); Red Blood Cell (RBC) Count 2.21 mill/uL (4.20-5.40); White Blood Cell (WBC) Count 5.4 thou/uL (4.8-10.8)
[2018-08-05 06:07] LABS: Albumin 2.7 g/dL (3.4-4.8); Anion Gap 15 mmol/L (10-20); BUN (Urea Nitrogen) 66 mg/dL (9.8-20.1); BUN/Creatinine Ratio 7.04; Calc. Creatinine Clearance 7 mL/min (70-130); Calcium 6.9 mg/dL (7.8-10.44); Carbon Dioxide 30 mmol/L (23-31); Chloride 102 mmol/L (98-107); Estimated GFR-MDRD 4; Glucose 113 mg/dL (83-110); Phosphorus 7.1 mg/dL (2.3-4.7); Potassium 3.9 mmol/L (3.5-5.1); Sodium 143 mmol/L (136-145)
[2018-08-05] MEDS: Morphine 2 MG/ML SYRINGE IVP PRN (08:08)
[2018-08-05] MEDS: Ondansetron PF 4 MG/2 ML Vial IVP PRN (08:09)
[2018-08-05] MEDS: clonazePAM 0.5 MG TAB PO SCH ×2 (08:15→20:56)
[2018-08-05] MEDS: Morphine IR Tab 15 MG TAB PO SCH (08:15)
[2018-08-05] MEDS: Escitalopram Oxalate 10 mg Tablet PO SCH (08:15)
[2018-08-05] MEDS: Senokot S 8.6-50 MG TAB PO SCH ×2 (08:16→20:56)
[2018-08-05] MEDS: Multivitamin W/ Minerals 1 TAB PO SCH (08:16)
[2018-08-05] MEDS ORDERED: Heparin 10,000 UNITS/ 10 ML VIAL ONE (10:00)
--- NOTE | 2018-08-05 10:21 | PRG ---
DATE OF SERVICE: 08/05/2018 SUBJECTIVE: Ms. Evans is feeling better today. She had dialysis yesterday. Her creatinine and BUN have improved. The patient is feeling less nauseated, although while I was talking with her, she aga in became nauseated, but overall she is feeling better. OBJECTIVE: VITAL SIGNS: The patient is afebrile, pulse 82, respiratory rate 19, O2 saturation 96 on 1 liter kavya al cannula, blood pressure 128/64. LABORATORY DATA: CBC shows white count 5.4, hemoglobin 6.9, creatinine is down to 9.37 with a BUN of 66. Left lower extremity remains neurovascularly intact. The patient will go back to dialysis today. When she is feeling better, we will have physical therap y work with her as far as getting her out of bed and ambulating with a walker.
--- NOTE | 2018-08-05 11:21 | PRG ---
DATE OF SERVICE: 08/05/2018 HISTORY: Ms. Evans is a 73-year-old woman who is postoperative day #1, status post placement of a sp lit dialysis catheter. Postoperative day #2, status post open reduction internal fixation of intertr ochanteric left femur fracture. The patient was admitted with acute renal failure with creatinine in excess of 16. She tolerated hemodialysis well yesterday. Today, she reports adequate pain control. She is mentall y alert. PHYSICAL EXAMINATION: VITAL SIGNS: Currently includes blood pressure 128/64, pulse is 82, respirations 19, temperature is 98.7 degrees Fahrenheit, oxygen saturation is 96% on 1 liter by nasal cannula oxygen. HEENT: Reveals normocephalic and atraumatic. Pupils are equal, round, reactive to light and accommo dation. She has no sclerae icterus present. NECK: She has no jugular venous distention noted. HEART: Reveals regular rate and rhythm, no murmurs or gallops auscultated. LUNGS: Clear to auscultation bilaterally. Her breathing is regular and unlabored. ABDOMEN: Soft, nontender, nondistended. EXTREMITIES: Reveals 2+ radial and pedal pulses bilaterally. No ankle edema is present. NEUROLOGIC: Reveals no focal deficits present. LABORATORY DATA: Today includes a CBC with 5400 white blood cells, hemoglobin and hematocrit 6.9 and 21.2 respectively. Platelet count is 246,000. Metabolic profile: Sodium 143, potassium 3.9, chlor lorenzo is 102, bicarbonate is 30, BUN is 66, creatinine is 9.37, glucose is 113. Phosphorus is improved at 7.1, in contrast to 11.1 yesterday. IMPRESSION: 1. Postop day #2, status post open reduction internal fixation left intertrochanteric femur fracture . 2. Acute renal failure, improving. The patient did produce 500 mL of nirmal colored urine over the l ast 24 hours. 3. Acute blood loss anemia. PLAN: 1. The patient will be transfused with 2 units packed red blood cells. 2. We will saline lock her at this time and start her on a renal diet as she may tolerate. 3. Initiate physical and occupational therapy. 4. The patient is stable for transfer to surgical floor after dialysis.
[2018-08-05] MEDS: Acetaminophen 500 MG TAB PO SCH ×3 (14:29→23:47)
[2018-08-05] MEDS: Atorvastatin Calcium 40 MG TAB PO SCH (20:56)
--- NOTE | 2018-08-05 21:42 | PRG ---
DATE OF SERVICE: 08/05/2018 SUBJECTIVE: The patient was seen and examined, seems to be feeling much better, noted with the follo wing vital signs. PHYSICAL EXAMINATION: VITAL SIGNS: Afebrile with temperature 98.5, pulse 82, respiratory rate of 18, blood pressure 141/82 . HEENT: Unremarkable with moist oral mucosa. No conjunctival injection or icterus. NECK: Supple. CARDIOVASCULAR: First and second heart sounds were heard. RESPIRATORY: Clear to auscultation. DIGESTIVE: Revealed a benign abdomen. EXTREMITIES: No peripheral edema. SKIN: No new gross rash. LYMPHATICS: No peripheral lymphadenopathy. LABORATORY INVESTIGATIONS: Showed a creatinine of 9.37, BUN of 66, calcium 6.9 with phosphorus of 7. 1. Hematology, CBC showed a hemoglobin of 6.9. IMPRESSION: 1. Acute tubular necrosis, now on hemodialysis. 2. Anemia. 3. Profound azotemia. PLAN: The patient to be dialyzed for the second time today. As a matter of fact, the patient was di alyzed yesterday and that could be responsible for the creatinine down to 9. In any case, the patien t was able to make about 500 mL of urine, which is a good sign as this acute tubular necrosis is nono liguric. This raises the possibility of renal recovery. I will pay very close attention to this kid alex to know when the kidney recovers to the point of not requiring hemodialysis. In any case, if thi s does not happen now, the patient can still be discharged and continue with outpatient dialysis jer e this monitoring is still ongoing. We will continue to follow with you.
[2018-08-06 04:37] LABS: Hemoglobin 9.3 g/dL (12.0-16.0); Mean Corpuscular HGB CONC 32.8 g/dL (32.0-36.0); Mean Corpuscular Hemoglobin 30.7 pg (27.0-31.0); Mean Corpuscular Volume 93.6 fL (78.0-98.0); Mean Platelet Volume 6.2 fL (7.4-10.4); Platelet Count 232 thou/uL (130-400); RBC Distribution Width 13.3 % (11.5-14.5); Red Blood Cell (RBC) Count 3.03 mill/uL (4.20-5.40)
[2018-08-06] MEDS: Acetaminophen 500 MG TAB PO SCH ×3 (05:36→18:30)
[2018-08-06] MEDS: Heparin 5,000 UNITS/ML VIAL SC SCH ×3 (05:36→21:59)
[2018-08-06] MEDS ORDERED: Heparin 10,000 UNITS/ 10 ML VIAL ONE (10:00)
[2018-08-06] MEDS: clonazePAM 0.5 MG TAB PO SCH ×2 (11:18→20:25)
[2018-08-06] MEDS: Senokot S 8.6-50 MG TAB PO SCH ×2 (11:18→20:26)
[2018-08-06] MEDS: Escitalopram Oxalate 10 mg Tablet PO SCH (11:18)
[2018-08-06] MEDS: Multivitamin W/ Minerals 1 TAB PO SCH (11:18)
[2018-08-06 13:04] LABS: Anion Gap 10 mmol/L (10-20); BUN (Urea Nitrogen) 12 mg/dL (9.8-20.1); Calc. Creatinine Clearance 29 mL/min (70-130); Calcium 8.3 mg/dL (7.8-10.44); Carbon Dioxide 32 mmol/L (23-31); Chloride 102 mmol/L (98-107); Estimated GFR-MDRD 23; Glucose 84 mg/dL (83-110); Magnesium 1.6 mg/dL (1.6-2.6); Phosphorus 2.1 mg/dL (2.3-4.7); Potassium 3.5 mmol/L (3.5-5.1); Sodium 140 mmol/L (136-145)
[2018-08-06] MEDS ORDERED: Magnesium 2 GM/50 ML 2 GM in Premix Bag 1 BAG IVPB SCH (14:45)
[2018-08-06] MEDS ORDERED: Potassium Phosphate 30 MMOL in Sodium Chloride 0.9% 500 ML IVPB SCH (15:00)
--- NOTE | 2018-08-06 18:25 | PRG ---
DATE OF SERVICE: 08/06/2018 SUBJECTIVE: Patient is seen and examined today at dialysis, seems to be doing much better, noted wit h the following vital signs. PHYSICAL EXAMINATION: VITAL SIGNS: Afebrile with temperature 98.5, pulse 80, respiratory rate 16, O2 sat 98% with blood pr essure 142/95. HEENT: Unremarkable with moist oral mucosa. NECK: Supple. No conjunctival injection or icterus. CARDIOVASCULAR: First and second heart sounds were heard. RESPIRATORY: Clear to auscultation. DIGESTIVE: Revealed a benign abdomen, positive bowel sounds. SKIN: No new gross rash. LYMPHATICS: No peripheral lymphadenopathy. LABORATORY INVESTIGATIONS: Significant for creatinine down to 2.15, hemoglobin of 9. IMPRESSION: Acute tubular necrosis which seems to be showing evidence of recovery. PLAN: 1. After dialysis today, we will hold off on dialyzing this patient tomorrow and we will evaluate th is patient's renal function with a possibility of renal recovery. 2. Renally dose all medications. Avoid potentially nephrotoxic agents, especially in this patient w ith significant evidence of renal recovery. 3. Further management to be dependent on the clinical course.
[2018-08-06] MEDS: Atorvastatin Calcium 40 MG TAB PO SCH (20:26)
[2018-08-06] MEDS: traMADol HCl 50 MG TAB PO PRN (20:36)
[2018-08-07] MEDS: Acetaminophen 500 MG TAB PO SCH ×5 (00:06→23:51)
[2018-08-07] MEDS: traMADol HCl 50 MG TAB PO PRN ×3 (04:22→17:44)
[2018-08-07] MEDS: Heparin 5,000 UNITS/ML VIAL SC SCH ×3 (06:13→21:09)
[2018-08-07 07:42] LABS: #Eosinphils 0.1 thou/uL (0.0-0.7); #Lymphocytes 0.8 thou/uL (1.20-3.40); #Monocytes 0.4 thou/uL (0.11-0.59); #Neutrophils 5.4 thou/uL (1.40-6.50); %Basophils 0.1 % (0.0-1.0); %Eosinophils 1.9 % (0.0-10.0); %Lymphocytes 12.3 % (21.0-51.0); %Monocytes 5.5 % (0.0-10.0); %Neutrophils 80.3 % (42.0-75.0); Hemoglobin 9.3 g/dL (12.0-16.0); Mean Corpuscular HGB CONC 32.2 g/dL (32.0-36.0); Mean Corpuscular Hemoglobin 29.7 pg (27.0-31.0); Mean Corpuscular Volume 92.1 fL (78.0-98.0); Mean Platelet Volume 6.2 fL (7.4-10.4); Platelet Count 218 thou/uL (130-400); Red Blood Cell (RBC) Count 3.14 mill/uL (4.20-5.40); White Blood Cell (WBC) Count 6.7 thou/uL (4.8-10.8)
[2018-08-07 08:29] LABS: Albumin 2.5 g/dL (3.4-4.8); Anion Gap 10 mmol/L (10-20); BUN (Urea Nitrogen) 24 mg/dL (9.8-20.1); BUN/Creatinine Ratio 6.28; Calc. Creatinine Clearance 16 mL/min (70-130); Calcium 7.6 mg/dL (7.8-10.44); Carbon Dioxide 31 mmol/L (23-31); Chloride 103 mmol/L (98-107); Estimated GFR-MDRD 12; Glucose 98 mg/dL (83-110); Phosphorus 5.3 mg/dL (2.3-4.7); Potassium 3.2 mmol/L (3.5-5.1); Sodium 141 mmol/L (136-145)
[2018-08-07] MEDS ORDERED: Magnesium 2 GM/50 ML 2 GM in Premix Bag 1 BAG IVPB SCH (08:30)
[2018-08-07] MEDS: clonazePAM 0.5 MG TAB PO SCH ×2 (08:43→20:55)
[2018-08-07] MEDS: Multivitamin W/ Minerals 1 TAB PO SCH ×2 (08:44→08:45)
[2018-08-07] MEDS: Senokot S 8.6-50 MG TAB PO SCH ×2 (08:44→21:10)
[2018-08-07] MEDS: Escitalopram Oxalate 10 mg Tablet PO SCH (08:44)
[2018-08-07] MEDS ORDERED: Potassium Chloride 20 MEQ TAB PO SCH (11:30)
--- NOTE | 2018-08-07 15:22 | PRG-2 ---
DATE OF SERVICE: 08/07/2018 RESIDENT: Gabriella Santacruz MD ATTENDING: Michi Robb DO SUBJECTIVE: This is a 73-year-old woman who is postoperative day #2, status post placement of hemodialysis catheter. She is postop day #4, status post open reduction internal fixation of intertrochanteric left femur fracture. The patient was admitted with acute renal failure with creatinine in excess of 16. The patient received hemodialysis yesterday and tolerated it well. Today, the patient reports that she is doing better and has adequate pain control. Patient is alert and oriented on exam. The patient is tolerating p.o. OBJECTIVE: VITAL SIGNS: Temperature 97.6, pulse 82, respirations 18, O2 saturation 98% on room air, blood pressure 176/78. HEENT: Normocephalic, atraumatic. Pupils equal, round, and reactive to light and accommodation. Extraocular motion intact. RESPIRATORY: Clear to auscultation bilaterally, nonlabored breathing. CARDIOVASCULAR: Regular rate and rhythm. No murmurs, rubs, or gallops. ABDOMEN: Soft, nontender, nondistended. EXTREMITIES: 2+ radial and pedal pulses bilaterally. No edema present. NEUROLOGIC: Nonfocal exam. PSYCHIATRIC: Normal mood and affect. LABORATORY DATA: WBC 6.7, hemoglobin 9.3, hematocrit 29, platelet count 218. Sodium 141, potassium 3.2, chloride 103, BUN 24, creatinine 3.82, estimated GFR 12, calcium 7.6, phosphorus 5.3, magnesium 2.0. ASSESSMENT: 1. Postop day #4 status post open reduction internal fixation left intertrochanteric femur fracture. 2. Acute renal failure, status post hemodialysis catheter, improving. 3. Acute blood loss anemia. PLAN: The patient's hemoglobin is stable today. Patient is tolerating renal diet. Patient will continue with physical and occupational therapy. We will hold off dialysis today per Dr. Modi's recommendation with the possibility of renal recovery. Medications will continue to be renally dosed. Appreciate his recommendations. Patient had urinary retention and had to get Torres placed back in today. This likely explains slight bump in creatinine today. Will continue to monitor with daily BMP. We will continue to monitor urinary output. Case management assisting with discharge planning. The patient was seen and evaluated by Dr. Robb. The plan was discussed with patient. She was in agreement. All questions were asked and answered. WOODY
[2018-08-07 15:49] LABS: ANA Symphony (Qualitative) Negative (Negative); dsDNA IgG Antibody 0.6 IU/mL (<10 Negative)
[2018-08-07] MEDS: Atorvastatin Calcium 40 MG TAB PO SCH (20:55)
[2018-08-08] MEDS: Acetaminophen 500 MG TAB PO SCH ×3 (05:38→18:39)
[2018-08-08] MEDS: Heparin 5,000 UNITS/ML VIAL SC SCH ×3 (05:38→20:52)
[2018-08-08 06:15] LABS: Albumin 2.7 g/dL (3.4-4.8); Anion Gap 12 mmol/L (10-20); BUN (Urea Nitrogen) 32 mg/dL (9.8-20.1); BUN/Creatinine Ratio 7.82; Calc. Creatinine Clearance 15 mL/min (70-130); Calcium 7.8 mg/dL (7.8-10.44); Carbon Dioxide 30 mmol/L (23-31); Chloride 104 mmol/L (98-107); Estimated GFR-MDRD 11; Glucose 103 mg/dL (83-110); Magnesium 2.2 mg/dL (1.6-2.6); Phosphorus 4.9 mg/dL (2.3-4.7); Potassium 3.2 mmol/L (3.5-5.1); Sodium 143 mmol/L (136-145)
[2018-08-08 06:34] LABS: Phosphorus 4.9 mg/dL (2.3-4.7)
[2018-08-08] MEDS: traMADol HCl 50 MG TAB PO PRN ×2 (08:18→13:35)
[2018-08-08] MEDS: Escitalopram Oxalate 10 mg Tablet PO SCH (08:20)
[2018-08-08] MEDS: Senokot S 8.6-50 MG TAB PO SCH ×2 (08:20→20:47)
[2018-08-08] MEDS: Multivitamin W/ Minerals 1 TAB PO SCH (08:20)
[2018-08-08] MEDS: clonazePAM 0.5 MG TAB PO SCH ×2 (08:20→20:47)
[2018-08-08] MEDS: Calcium Citrate 950 MG TAB PO SCH (08:20)
[2018-08-08] MEDS ORDERED: Potassium Chloride 20 MEQ TAB PO SCH (08:45)
[2018-08-08 12:20] VITALS: BMI 29.4
--- NOTE | 2018-08-08 14:47 | PRG ---
DATE OF SERVICE: 08/08/2018 SUBJECTIVE: Roxanne Evans is a 73-year-old female who is postop day 5 status post open reduction i nternal fixation of her intertrochanteric left femur fracture sustained from a mechanical fall. Joe tionally, upon admission, the patient was found to be in acute renal failure. She is postop day 3 st atus post hemodialysis catheter. She did not receive dialysis yesterday and continues to have good u rine output. Upon my evaluation this morning, the patient reports that her pain has been well contro lled. Her Torres catheter did have to be replaced for urinary retention yesterday. The patient repor ts good p.o. intake and bowels are functioning. OBJECTIVE: VITAL SIGNS: Temperature 97.5, pulse 78, respirations 18, O2 sat 95% on room air, blood pressure 154 /75. GENERAL: Elderly-appearing female, sitting in a chair, out of bed. PULMONARY: Normal work of breathing. Symmetric rise. LUNGS: Clear to auscultation bilaterally. CARDIOVASCULAR: Regular rate and rhythm. GASTROINTESTINAL: Abdomen is soft, nontender and nondistended. MUSCULOSKELETAL: Moves all extremities x4. NEUROLOGIC: No focal deficit is noted. LABORATORY FINDINGS: Sodium 143, potassium 3.2, chloride 102, carbon dioxide 30, BUN 32, creatinine 4.09, glucose 103, phosphorus 4.9, magnesium 2.2. ASSESSMENT: 1. Status post mechanical fall. 2. Left intertrochanteric hip fracture, postoperative day 5. 3. Acute traumatic pain. 4. Acute renal failure, stabilizing. 5. Acute blood loss anemia. 6. Acute hypokalemia. PLAN: Continue pain management as ordered. Continue PT and OT. Encourage incentive spirometry and pulmonary toileting. Leave Torres in place for an additional 24 hours before attempting another voidi ng trial. Replete abnormal electrolytes. The patient has been discussed with Nephrology who will co ntin to monitor her renal function closely. They do not plan for HD today. A.m. labs. The patien t has been deemed medically stable for discharge once a bed at inpatient rehabilitation is available and she has been approved by insurance. Plan of care was discussed with the patient at bedside. All questions were answered at the time of this dictation. The patient was seen and evaluated with Dr. Robb.
--- NOTE | 2018-08-08 18:15 | PRG ---
DATE OF SERVICE: 08/08/2018 SUBJECTIVE: The patient seen and examined today, noted with the following vital signs. OBJECTIVE: VITAL SIGNS: Afebrile, temperature 98.1, pulse 78, respiratory rate 16, O2 sat 93% with a blood pres sure 148/77. HEENT: Unremarkable. Moist oral mucosa. NECK: Supple, No conjunctival injection or icterus. CARDIOVASCULAR: First and second heart sounds were heard. RESPIRATORY: Clear to auscultation. DIGESTIVE SYSTEM: Revealed a benign abdomen with positive bowel sounds. EXTREMITIES: No peripheral edema. SKIN: No new gross rash. LYMPHATICS: No peripheral lymphadenopathy. LABORATORY INVESTIGATION: Showed a creatinine that has gone up to 4.09 with BUN of 32 and potassium 3.2, phosphorus 4.9. IMPRESSION: 1. Acute tubular necrosis and nonoliguric is not yet fully recovered. 2. Obstructive uropathy, now with Torres catheter. PLAN: 1. We will hold dialysis today, but we will pay very close attention to this kidney due to the fact that the renal clearance has not really improved. In any case, the patient seems to be making an anna reciable amount of urine and therefore, we will monitor for subsequent renal clearance to improve. I n any event that the renal clearance continues to deteriorate continue renal replacement therap y (no emergent indication for dialysis). 2. Replete potassium.
--- NOTE | 2018-08-08 19:45 | PRG ---
DATE OF SERVICE: 08/08/2018 HISTORY: The patient was seen and examined and noted with the following vital signs. PHYSICAL EXAMINATION: VITAL SIGNS: Afebrile with temperature 98, pulse 83, respiratory rate of 18, O2 saturation 98% with a blood pressure 143/91. HEENT: Unremarkable. Moist oral mucosa. NECK: Supple, no conjunctival injection, no icterus. CARDIOVASCULAR SYSTEM: First and second heart sounds were heard. EXTREMITIES: No peripheral edema. SKIN: No new gross rash. LABORATORY DATA: Laboratory investigation showed creatinine above 3. IMPRESSION: 1. Acute tubular necrosis, seems to be showing some remarkable improvement. 2. Obstructive uropathy probably related to inactivity and pain medications. PLAN: 1. We will hold off on dialyzing this patient today being , and reevaluated the next day Sat. 2. If patient continues to have significant postvoid residual, we will recommend Torres catheterizati on until patient is able to void. 3. Further management to be dependent on the clinical course.
[2018-08-08] MEDS: Atorvastatin Calcium 40 MG TAB PO SCH (20:47)
[2018-08-09] MEDS: Acetaminophen 500 MG TAB PO SCH ×4 (00:53→18:23)
[2018-08-09] MEDS: Heparin 5,000 UNITS/ML VIAL SC SCH ×3 (06:04→21:02)
[2018-08-09] MEDS: traMADol HCl 50 MG TAB PO PRN ×3 (08:42→20:50)
[2018-08-09] MEDS: Multivitamin W/ Minerals 1 TAB PO SCH (08:42)
[2018-08-09] MEDS: Calcium Citrate 950 MG TAB PO SCH (08:42)
[2018-08-09] MEDS: Escitalopram Oxalate 10 mg Tablet PO SCH (08:42)
[2018-08-09] MEDS: clonazePAM 0.5 MG TAB PO SCH ×2 (08:42→20:50)
[2018-08-09] MEDS: Senokot S 8.6-50 MG TAB PO SCH ×2 (08:43→20:50)
[2018-08-09 08:45] LABS: #Basophils 0.1 thou/uL (0.0-0.2); #Eosinphils 0.2 thou/uL (0.0-0.7); #Lymphocytes 0.9 thou/uL (1.20-3.40); #Monocytes 0.4 thou/uL (0.11-0.59); #Neutrophils 5.7 thou/uL (1.40-6.50); %Basophils 1.7 % (0.0-1.0); %Eosinophils 3.1 % (0.0-10.0); %Lymphocytes 12.3 % (21.0-51.0); %Monocytes 4.9 % (0.0-10.0); %Neutrophils 78.1 % (42.0-75.0); Mean Corpuscular HGB CONC 32.3 g/dL (32.0-36.0); Mean Corpuscular Hemoglobin 30.6 pg (27.0-31.0); Mean Corpuscular Volume 94.7 fL (78.0-98.0); Mean Platelet Volume 6.4 fL (7.4-10.4); Platelet Count 263 thou/uL (130-400); RBC Distribution Width 12.9 % (11.5-14.5); Red Blood Cell (RBC) Count 3.28 mill/uL (4.20-5.40); White Blood Cell (WBC) Count 7.3 thou/uL (4.8-10.8)
[2018-08-09 09:17] LABS: Phosphorus 3.8 mg/dL (2.3-4.7)
[2018-08-09 09:18] LABS: Anion Gap 13 mmol/L (10-20); BUN (Urea Nitrogen) 35 mg/dL (9.8-20.1); BUN/Creatinine Ratio 9.43; Calc. Creatinine Clearance 16 mL/min (70-130); Calcium 7.9 mg/dL (7.8-10.44); Carbon Dioxide 30 mmol/L (23-31); Chloride 104 mmol/L (98-107); Estimated GFR-MDRD 12; Glucose 124 mg/dL (83-110); Magnesium 1.9 mg/dL (1.6-2.6); Phosphorus 3.9 mg/dL (2.3-4.7); Potassium 3.2 mmol/L (3.5-5.1); Sodium 144 mmol/L (136-145)
[2018-08-09] MEDS ORDERED: Potassium Chloride 40 MEQ in Premix Bag 1 BAG IVPB SCH (09:45)
[2018-08-09] MEDS ORDERED: Saccharomyces boulardii 250 MG CAP PO SCH (10:30)
[2018-08-09] MEDS: Potassium Chloride 20 MEQ in Premix Bag 1 BAG IVPB SCH (12:31)
--- NOTE | 2018-08-09 13:18 | PRG ---
DATE OF SERVICE: 08/09/2018 SUBJECTIVE: This is a 73-year female who is postop day 6 status post open reduction internal fixatio n of intertrochanteric left femur fracture after mechanical fall. The patient was additionally found to have acute renal failure present on admission. She is postop day 4 status post initiation of HD. There were no acute overnight events. The patient continues to have good urinary output. Upon our evaluation this morning, she complains of malaise, nausea without vomiting and diarrhea. She was on antibiotics for urinary tract infection that was present on admission. These were stopped yesterday . OBJECTIVE: VITAL SIGNS: Temperature 98, pulse 80, respirations 20, O2 sat 92%-94% on room air, blood pressure 1 53/85. GENERAL: Elderly-appearing female, in no acute distress, resting in bed. PULMONARY: Normal work of breathing. Symmetric rise. CARDIOVASCULAR: Regular rate and rhythm. GASTROINTESTINAL: Abdomen is soft, nontender, nondistended. Bowel sounds are hyperactive. MUSCULOSKELETAL: Moves all extremities x4. NEUROLOGIC: No focal deficit noted. LABORATORY DATA: WBC 7.3, hemoglobin 10.0, hematocrit 31.1, platelet count 263,000. Sodium 144, pot assium 3.2, chloride 104, carbon dioxide 30, BUN 35, creatinine 3.71, glucose 124, phosphorus 3.9, ma gnesium 1.9. ASSESSMENT: 1. Status post mechanical fall. 2. Left intertrochanteric hip fracture, postoperative day 6 status post open reduction internal fixa tion. 3. Acute renal failure, status post initiation of hemodialysis, stable. 4. Acute traumatic pain. 5. Acute hypokalemia. 6. Acute blood loss anemia, improving. 7. New onset diarrhea, status post antibiotics. PLAN: Continue to observe the patient closely. We will check stool for C. diff. Continue to encour age incentive spirometry, pulmonary toileting and mobility with physical therapy. Replete abnormal e lectrolytes. A.m. labs. Plan of care was discussed with the patient at bedside and all questions we re answered at the time of this dictation. The patient was seen and evaluated with Dr. Robb.
[2018-08-09] MEDS: Atorvastatin Calcium 40 MG TAB PO SCH (20:50)
[2018-08-10] MEDS: Acetaminophen 500 MG TAB PO SCH ×5 (00:53→23:22)
[2018-08-10] MEDS: traMADol HCl 50 MG TAB PO PRN ×3 (02:58→20:39)
[2018-08-10] MEDS: Heparin 5,000 UNITS/ML VIAL SC SCH ×3 (05:13→20:40)
[2018-08-10 06:53] LABS: Albumin 2.9 g/dL (3.4-4.8); Anion Gap 11 mmol/L (10-20); BUN (Urea Nitrogen) 30 mg/dL (9.8-20.1); BUN/Creatinine Ratio 9.77; Calc. Creatinine Clearance 20 mL/min (70-130); Calcium 8.2 mg/dL (7.8-10.44); Carbon Dioxide 30 mmol/L (23-31); Chloride 105 mmol/L (98-107); Estimated GFR-MDRD 15; Glucose 94 mg/dL (83-110); Phosphorus 3.3 mg/dL (2.3-4.7); Potassium 3.1 mmol/L (3.5-5.1); Sodium 143 mmol/L (136-145)
[2018-08-10] MEDS: clonazePAM 0.5 MG TAB PO SCH ×2 (08:12→20:41)
[2018-08-10] MEDS: Escitalopram Oxalate 10 mg Tablet PO SCH (08:12)
[2018-08-10] MEDS: Saccharomyces boulardii 250 MG CAP PO SCH (08:13)
[2018-08-10] MEDS: Senokot S 8.6-50 MG TAB PO SCH ×2 (08:13→20:41)
[2018-08-10] MEDS: Multivitamin W/ Minerals 1 TAB PO SCH (08:13)
[2018-08-10] MEDS: Calcium Citrate 950 MG TAB PO SCH (08:18)
[2018-08-10] MEDS ORDERED: Saccharomyces boulardii 250 MG CAP PO SCH (09:35)
[2018-08-10] MEDS: Morphine ER 15 MG TAB PO SCH ×2 (10:48→17:30)
[2018-08-10] MEDS: Potassium Chloride 20 MEQ TAB PO SCH ×2 (12:27→12:29)
--- NOTE | 2018-08-10 13:13 | PRG ---
DATE OF SERVICE: 08/10/2018 The patient was seen by Dr. Michi Robb. SUBJECTIVE: Ms. Evans is a 73-year-old female postop day #7 status post ORIF left intertrochanteric femur fracture after a mechanical fall. The patient was also found to be in acute renal failure with elevated creatinine on arrival. She is postop day #4 status post initiation of hemodialysis. She has got a tunneled right IJ HD catheter. However, the patient has not required subsequent dialysis as both her renal function continues to improve, she is producing good urine. Patient states that she had a poor night secondary to pain around 1 this morning. She is on home morphine and has not been given her home dose as of yet but otherwise she has been ambulatory and she is tolerating a diet and having normal bowel movements. OBJECTIVE: VITAL SIGNS: Blood pressure is 162/85, temperature is 98.0, heart rate is 86, respiratory rate is 18, O2 sat is 94% on room air. GENERAL: This is a 73-year-old female lying in bed, mild distress secondary to pain. HEENT: Normocephalic, atraumatic. NECK: Trachea is midline. No JVD is appreciated. Does have a right tunneled IJ catheter in place. RESPIRATORY: Equal rise and fall of breath sounds. CHEST: Clear to auscultation of lungs bilaterally. CARDIOVASCULAR: Regular rate and rhythm. No murmurs are appreciated. ABDOMEN: Soft and nontender. MUSCULOSKELETAL: Moves extremities x4. NEUROLOGIC: No focal deficits. SKIN: [place], warm, and dry. LABORATORY DATA: From today chemistry, sodium is 143, potassium is 3.1, chloride is 105, BUN is 30, creatinine is 3.07, which is improved from yesterday at 3.71. Glucose is 94, calcium is 8.2, phos is 3.3, albumin is 2.9. ASSESSMENT AND PLAN: 1. Left intertrochanteric hip fracture, status post open reduction and internal fixation, postop day #7. 2. Acute renal failure, status post hemodialysis and improving. 3. Acute traumatic pain. 4. Acute on chronic pain. 5. Acute hypokalemia. 6. Blood loss anemia, improving. 7. Diarrhea that is resolving with negative Clostridium difficile studies from yesterday. PLAN: 1. Continue to monitor. 2. Add morphine for pain control. 3. Continue to work with PT. 4. Daily renal function. 5. Replace electrolytes as needed. 6. Renal is following. I appreciate recommendations. 7. We will plan for discharge in the ensuing days as long as his renal function continues to improve. The patient is working with PT. The patient was seen with Dr. Michi Robb and all questions of the patient were answered at the bedside. MELLOD
[2018-08-10] MEDS: Atorvastatin Calcium 40 MG TAB PO SCH (20:41)
[2018-08-11] MEDS: Morphine ER 15 MG TAB PO SCH ×2 (01:39→09:19)
[2018-08-11 04:25] LABS: Anion Gap 13 mmol/L (10-20); BUN (Urea Nitrogen) 27 mg/dL (9.8-20.1); Calc. Creatinine Clearance 24 mL/min (70-130); Calcium 8.6 mg/dL (7.8-10.44); Carbon Dioxide 28 mmol/L (23-31); Chloride 107 mmol/L (98-107); Estimated GFR-MDRD 19; Glucose 93 mg/dL (83-110); Magnesium 1.4 mg/dL (1.6-2.6); Phosphorus 3.4 mg/dL (2.3-4.7); Potassium 3.5 mmol/L (3.5-5.1); Sodium 144 mmol/L (136-145)
[2018-08-11] MEDS: Acetaminophen 500 MG TAB PO SCH ×2 (06:03→12:28)
[2018-08-11] MEDS: Heparin 5,000 UNITS/ML VIAL SC SCH ×2 (06:04→13:29)
[2018-08-11] MEDS: traMADol HCl 50 MG TAB PO PRN ×2 (06:11→12:29)
[2018-08-11] MEDS ORDERED: POTASSIUM CHLORIDE IVPB SCH (08:45)
[2018-08-11] MEDS ORDERED: MAGNESIUM SULFATE IVPB SCH (08:45)
[2018-08-11] MEDS ORDERED: SODIUM CHLORIDE 0.9% IVPB SCH (08:45)
[2018-08-11] MEDS: Epoetin (ESRD) 20,000 UNITS/ML SC SCH (08:56)
[2018-08-11] MEDS: Escitalopram Oxalate 10 mg Tablet PO SCH (09:02)
[2018-08-11] MEDS: clonazePAM 0.5 MG TAB PO SCH (09:02)
[2018-08-11] MEDS: Saccharomyces boulardii 250 MG CAP PO SCH (09:02)
[2018-08-11] MEDS: Multivitamin W/ Minerals 1 TAB PO SCH (09:03)
[2018-08-11] MEDS: Senokot S 8.6-50 MG TAB PO SCH (09:03)
[2018-08-11] MEDS: Calcium Citrate 950 MG TAB PO SCH (09:05)
--- NOTE | 2018-08-11 12:18 | OP ---
PREOPERATIVE DIAGNOSIS: Ms. Roxanne Evans kidneys have recovered from acute renal failure. I have been asked by Nephrology to remove her hemodialysis catheter, right IJ cuffed tunnel. At the [facility], we will perform this. POSTOPERATIVE DIAGNOSIS: Ms. Roxanne vEans kidneys have recovered from acute renal failure. I hav e been asked by Nephrology to remove her hemodialysis catheter, right IJ cuffed tunnel. At the [facility], we will perform this. PROCEDURE PERFORMED: Removal of hemodialysis catheter. SURGEON: Dr. Krishna Leroy. ANESTHESIA: None. DESCRIPTION OF PROCEDURE: With the patient at bedside, her dressing from a right IJ cuffed tunnel he modialysis catheter removed and sutures removed. With gentle traction, the catheter and cuff removed . Pressure held to hemostatic. The patient tolerated the procedure well.
--- NOTE | 2018-08-11 12:26 | DIS-2 ---
DATE OF ADMISSION: 08/02/2018 DATE OF DISCHARGE: 08/11/2018 ADMITTING PHYSICIAN: Dr. Michi Robb DISCHARGING PHYSICIAN: Dr. Michi Robb CONSULTING ORTHOPEDIST: Dr. Kali Pedraza CONSULTING VENDING MACHINE TECHNICIAN: Dr. Modi ADMITTING DIAGNOSES: 1. Left hip fracture. 2. Acute renal failure. 3. Acute traumatic pain. 4. Urinary tract infection. 5. Hyperkalemia, likely secondary to renal failure DISCHARGING DIAGNOSIS: 1. Left intertrochanteric hip fracture status post open reduction internal fixation. 2. Acute traumatic pain, resolving. 3. Acute renal failure likely secondary to acute tubular necrosis, improving, status post dialysis. 4. Urinary tract infection, resolved. 5. Hyperkalemia, resolved. HOSPITAL COURSE: Ms. Evans is a 73-year-old female who presented to the emergency department initial ly with a chief complaint of nausea and vomiting, diagnosed with a UTI on the date of admission; lorenzo jamie, she fell in the parking lot after being discharged from the emergency department and was brought back into the ER and on laboratory evaluation was noted to be in acute renal failure as well as havi ng a left intertrochanteric hip fracture. The patient was admitted to the Trauma Service. Nephrolog y, Dr. Modi, was consulted and we appreciate recommendations. The patient was nearly anuric. She went for an ORIF of the left hip on hospital day #1 with good success of the surgery. On hospita l day #2, a right tunneled IJ catheter was placed by Dr. Leroy for hemodialysis and on hospital day #3, as the patient's renal function did not greatly improve and was nearly anuric, she was started on hemodialysis. The patient was working with physical therapy. She was starting to tolerate a diet a nd improving from her orthopedic injury. After dialysis, renal function started to improve and the p atient after a few rounds of dialysis actually started to make urine. On the date of discharge, the patient is spontaneously voiding making good urine. Her vital signs are stable. She is tolerating a diet. She is working with PT and she has been accepted to rehab. The patient still has an IJ vaibhav ter in place and we will leave this. She will follow up with Nephrology. The patient on the date of discharge states that her pain is better controlled. She is on morphine at home. This was again ad ded. She is tolerating a diet and again has been approved for rehab. PROCEDURES DURING THIS ADMISSION: 1. Left intertrochanteric hip fracture, ORIF with Dr. Pedraza. 2. Right IJ tunneled catheter placement. 3. Initiation of hemodialysis. PHYSICAL EXAMINATION: On the date of discharge. VITAL SIGNS: Temperature is 98.0, blood pressure is 159/95, respiratory rate is 14, heart rate 88. She is satting 96% on room air. Urine output of 4 urinations on the date of discharge. GENERAL: This is a 73-year-old female sitting up in bed in no acute distress. HEENT: Normocephalic, atraumatic. Trachea is midline. NECK: No JVD is appreciated. Neck does have a tunneled right IJ. No signs of infection. CARDIOVASCULAR: Equal bilateral breath sounds, clear to auscultation bilaterally. CARDIOVASCULAR: Regular rate and rhythm. No murmurs appreciated. ABDOMEN: Soft and nontender. Pelvis is stable. Dressing is dry to the left hip. Wound care has re dressed dressing today. MUSCULOSKELETAL: Moves extremities well. No significant edema. NEUROLOGIC: Alert and oriented to person, place, time, and event. PSYCHIATRIC: Normal mood and affect. SKIN: [place], warm and dry. DIAGNOSTIC DATA FROM TODAY: Chemistry; sodium 144, potassium 3.5, chloride is 107, CO2 is 28, BUN is 27, creatinine is again down trending 2.54 today, glucose is 93. Phosphorus is 3.4 and a mag of 1.1 . DISCHARGE INSTRUCTIONS: 1. Follow up will be with Dr. Perdaza in the [facility] within a week. 2. Follow up with Dr. Modi. 3. Continue to be followed at rehab facility. No need for dialysis at this point. 4. Follow up with Trauma Clinic in 2 weeks as needed. 5. Again, the patient is being discharged to inpatient rehab. 6. I have coordinated care with the patient and the patient's family at the bedside. Reviewed notes of Dr. Modi. The patient was seen with Dr. Robb. Greater than 40 minutes was taken in discharge planning of this patient.
[2018-08-11 16:19] VITALS: BP 150/82; TEMP 98.1
--- NOTE | 2018-08-12 08:40 | PRG ---
DATE OF SERVICE: 08/11/2018 The patient seen and examined today, seems to be doing much better, noted with the following vital si gns, afebrile, temperature 97.7, pulse 92, respiratory rate of 18, O2 sat of 96% with a blood pressur e of 148/84. HEENT: Unremarkable. Moist oral mucosa.
== END 2018-08-11 15:45 | disposition home or self-care (01) | DRG 480 ==
LOC: ERS 14:31 → IMCU/EMU 18:33 → SURG A 08-06 18:10
PROVIDERS: ADMIT Surgery; ATTEND Surgery
PROC: 5A1D70Z Performance of Urinary Filtration, Intermittent, Less than 6 Hours Per Day (ICD-10-PCS; 2018-08-02)
PROC: 0QS704Z Reposition Left Upper Femur with Internal Fixation Device, Open Approach (ICD-10-PCS; principal; 2018-08-03)
PROC: 05HM33Z Insertion of Infusion Device into Right Internal Jugular Vein, Percutaneous Approach (ICD-10-PCS; 2018-08-04)
PROC: B543ZZA Ultrasonography of Right Jugular Veins, Guidance (ICD-10-PCS; 2018-08-04)
PROC: B513YZA Fluoroscopy of Right Jugular Veins using Other Contrast, Guidance (ICD-10-PCS; 2018-08-04)
PROC: 05PYX3Z Removal of Infusion Device from Upper Vein, External Approach (ICD-10-PCS; 2018-08-11)
DX: S72.142A Displaced intertrochanteric fracture of left femur, initial encounter for closed fracture (principal); N17.0 Acute kidney failure with tubular necrosis; N39.0 Urinary tract infection, site not specified; E87.2 Acidosis; D62 Acute posthemorrhagic anemia; N25.81 Secondary hyperparathyroidism of renal origin; K52.1 Toxic gastroenteritis and colitis; I10 Essential (primary) hypertension; M54.9 Dorsalgia, unspecified; G89.29 Other chronic pain; Z87.442 Personal history of urinary calculi; E87.5 Hyperkalemia; I51.7 Cardiomegaly; W18.30XA Fall on same level, unspecified, initial encounter; Z79.899 Other long term (current) drug therapy; Z79.891 Long term (current) use of opiate analgesic; T36.95XA Adverse effect of unspecified systemic antibiotic, initial encounter; Y92.239 Unspecified place in hospital as the place of occurrence of the external cause; N13.9 Obstructive and reflux uropathy, unspecified
CPT/HCPCS: 36415; 36430; 51702; 71045; 72170; 74176; 76001; 76770; 80048; 80053; 80069; 81003; 81015; 82553; 82570; 82728; 83540; 83550; 83735; 83970; 84100; 84156; 84484; 85025; 85027; 86038; 86160; 86225; 86704; 86706; 86803; 86850; 86900; 86901; 87086; 87324; 87340; 87449; 90471; 90670; 90935; 93005; 93306; 93970; 94760; 96361; 96365; 96375; C1713; C1752; C1769; G0009; G0257; G0365; G8978-GP-CL; G8979-GP-CJ; J0131; J0670; J0744; J1100; J1170; J1644; J2001; J2250; J2270; J2405; J2550; J2704; J3010; J3475; J3480; J7050; J7070; P9016; Q0162; Q4081

== ENCOUNTER 2019-01-05 08:05 | Outpatient (CLI) | payer BC, MEDICARE ==
--- NOTE | 2019-01-05 08:27 | RAD ---
EXAM: 3 views of the ankle HISTORY: Ankle pain COMPARISON: None FINDINGS: 3 views of the ankle shows no evidence of acute fracture or dislocation. Mild lateral soft tissue swelling is seen. No degenerative changes are present. IMPRESSION: No evidence of acute osseous abnormality.
== END 2019-01-05 08:06 | disposition home or self-care (01) ==
LOC: RAD 08:05
PROVIDERS: ATTEND Nurse Practitioner Family
DX: M25.571 Pain in right ankle and joints of right foot (principal)